=== PATIENT | female | born 2000 | race Caucasian/White ===

== ENCOUNTER 2021-01-22 20:08 | Emergency (ER) | payer OTHER ==
[~2021-01-22] VITALS: Ht 177.8 cm; Wt 93.0 kg
[2021-01-22] MEDS ORDERED: SODIUM CHLORIDE FLUSH 10ML SYR IVF ONE (22:00)
[2021-01-22] MEDS ORDERED: KETOROLAC 30 MG/1 ML IVPush ONE (22:00)
[2021-01-22] MEDS ORDERED: SODIUM CHLORIDE 0.9% 1,000ML IVBOLUS ONE (22:00)
[2021-01-22] MEDS ORDERED: MORPHINE SULFATE 4 MG/ML, 1ML IVPush PRN (22:00)
[2021-01-22] MEDS ORDERED: ONDANSETRON 2MG/ML, 2ML IVPush ONE (22:00)
[2021-01-22] MEDS ORDERED: KETOROLAC 30 MG/1 ML ONE (22:25)
[2021-01-22 22:29] LABS: BASOPHILS % (AUTO) 0 % (0-1); EOSINOPHILS % (AUTO) 0 % (1-7); LYMPHOCYTES % (AUTO) 7 % (22-44); MEAN CORPUSCULAR HEMOGLOBIN 30.8 pg (27.0-34.8); MEAN CORPUSCULAR HGB CONC 34.5 g/dL (32.4-35.8); MEAN PLATELET VOLUME 8.2 fL (7.4-10.4); MONOCYTES % (AUTO) 5 % (2-9); NEUTROPHILS % (AUTO) 88 % (42-75); PLATELET COUNT 198 x10^3/uL (130-400); RED BLOOD COUNT 4.49 x10^6/uL (3.82-5.3)
[2021-01-22 22:34] LABS: ALANINE AMINOTRANSFERASE 35 U/L (12-78); ALBUMIN 3.6 g/dL (3.4-5.0); ANION GAP 7 mmol/L (5-15); CALCIUM 8.9 mg/dL (8.5-10.1); CHLORIDE 109 mmol/L (98-107); CREATININE 0.88 mg/dL (0.55-1.02)
[2021-01-22 22:39] LABS: ALKALINE PHOSPHATASE 49 U/L (45-117); BILIRUBIN,TOTAL 0.5 mg/dL (0.2-1.0); TOTAL PROTEIN 7.2 g/dL (6.4-8.2); TROPONIN I < 0.015 ng/mL (0.000-0.045)
[2021-01-22 23:08] VITALS: BP 122/76
[2021-01-23] MEDS ORDERED: ONDANSETRON 2MG/ML, 2ML ONE (00:28)
[2021-01-23] MEDS ORDERED: MORPHINE SULFATE 4 MG/ML, 1ML ONE (00:29)
== END 2021-01-23 00:50 | disposition home or self-care (01) ==
LOC: ED 23:02
DX: M94.0 Chondrocostal junction syndrome [Tietze] (principal); R07.2 Precordial pain; R06.00 Dyspnea, unspecified; R09.1 Pleurisy
CPT/HCPCS: 36415; 71045; 76641; 80053; 84484; 84703; 85025; 85379; 93005; 96361; 96374; 96375; 99285; J1885; J2270; J2405; J7030